=== PATIENT | female | born 1955 | race Caucasian/White ===

== ENCOUNTER → 2016-12-31 | Outpatient (REF) ==
--- NOTE | 2017-01-01 03:15 | REP ---
Clinical: Pain and disability. Technique: AP, lateral, open mouth views of the cervical spine. Findings: Alignment and lordosis maintained. No acute fracture / compression injury or subluxation. Moderate multilevel degenerative changes are appreciated including endplate sclerosis, mild disc space narrowing, and anterior spurring/osteophyte formation. Findings are most pronounced at the C5-6 level. Impression: Moderate multilevel degenerative changes most pronounced at C5-6. Signed by Daniel Torres MD 01/01/2017 03:06 A
--- NOTE | 2017-01-01 03:36 | REP ---
Clinical: Pain. Technique: AP, lateral, bilateral oblique and sunrise views of the right knee. Findings: Evidence for prior knee arthroplasty with normal appearance and positioning to the femoral and tibial components. Degenerative changes to the patella with decreased patellofemoral joint space, heterogeneity to the osseous matrix and marginal spurring. Prepatellar soft tissue swelling cannot be excluded. No obvious effusion. Impression: Evidence of prior knee replacement. Degenerative changes to the patella. Signed by Daniel Torres MD 01/01/2017 03:28 A
== END ==
LOC: M SMT 13:50
PROVIDERS: ATTEND Internal Medicine
DX: Z02.1 Encounter for pre-employment examination (principal)